=== PATIENT | female | born 1935 | race Caucasian/White ===

== ENCOUNTER 2021-01-13 15:49 | Emergency (ER) | payer OTHER ==
[~2021-01-13] VITALS: Ht 157.5 cm; Wt 61.2 kg
--- NOTE | ~2021-01-13 | EMS ---
[address] [address] EMS Patient Care Report Name: MELANIE HENDERSON Room #: DEP ALFIE Eid#: [id number] Admission: 01/13/21 Attend Phys: Discharge: 01/13/21 Date of : 39 Report #: [id number] THIS REPORT FOR: //name// Report Transmitted: 01/14/2021 13:32 EMS Care Summary [place], [place]/[facility] Incident [id number] @ 01/13/2021 15:23 Incident Location [address] [place] [address] Patient MELANIE HENDERSON Female, 85 Years 1935 Patient Address [address] [place] [address] Patient History End Stage Renal Disease (ESRD),Dialysis, Patient Allergies No known allergies, Patient Medications None Reported, Chief Complaint Syncope Disposition Transported No Lights/[place] Dispatch Reason Unconscious/Fainting Transported To [facility] Narrative Arrived on scene with P36 to find our patient seated in her dialysis chair. Dialysis staff reported that the patient had been receiving her regular dialysis treatment and had gone unconscious for a short period of time. Staff [address] [address] EMS Patient Care Report Name: MELANIE HENDERSON Room #: DEP [place]#: [id number] Admission: 01/13/21 Attend Phys: Discharge: 01/13/21 Date of : 39 Report #: [id number] also reported that they had done two blood glucose tests on the patient, the first with a reading of 40 followed a short time later with a glucose of 103 with no intervention having been performed. Patient had completed 2/3 of her dialysis treatment. Due to patient's altered mental status a detailed history was not attainable from the patient. Patient was responsive to painful stimuli upon our arrival, after her response to painful stimuli patient was responsive to verbal stimuli but was not fully conscious. Patient's vital signs, 3 lead EKG, and glucose obtained. Patient transported and transferred to receiving facility without change in patient condition. Initial Vitals @15:41P: 79,CO: 0,SpO2: 99, @15:40P: 78,R: 16,BP: 170/58,GCS: 9,Glucose: 107,SpO2: 100,Revised Trauma: 11, @15:42P: 80,R: 16,BP: 169/58,GCS: 11,SpO2: 97,Revised Trauma: 11, Assessments @15:36MENTAL:Unresponsive,SKIN:Diaphoresis,HEENT:Head/Face: No Abnormalities,Eyes: No Abnormalities,Neck/Airway: No Abnormalities,LUNG SOUNDS:ABDOMEN:PELVIS//GI:Tenderness,Unstable,EXTREMITIES:Left Arm: No Abnormalities,Right Arm: No Abnormalities,Left Leg: No Abnormalities,Right Leg: No Abnormalities,PULSE:NEURO:No Abnormalities, Impression Syncope / Fainting Procedures @15:36ALS AssessmentResponse: UnchangedSucceeded@15:403-Lead ECGResponse: UnchangedSucceeded Timeline 15:21,Call Received 15:21,Dispatch Notified 15:23,Dispatched 15:23,En Route 15:30,On Scene 15:36,At Patient 15:36,ALS Assessment,Response: UnchangedSucceeded, 15:40,3-Lead ECG,Response: UnchangedSucceeded, 15:40,BP: 170/58 M,PULSE: 78,RR: 16 R,SPO2: 100 Ox,ETCO2: ,B,PAIN: ,GCS: 9, 15:41,BP: / M,PULSE: 79,RR: R,SPO2: 99 Ox,ETCO2: ,BG: ,PAIN: ,GCS: , 15:42,BP: 169/58 M,PULSE: 80,RR: 16 R,SPO2: 97 Ox,ETCO2: ,BG: ,PAIN: ,GCS: 11, 15:44,Depart Scene 15:46,At Destination 16:04,Call Closed [facility] [address] [place] [address] EMS Patient Care Report Name: MELANIE HENDERSON Room #: DEP [facility]#: [id number] Admission: 01/13/21 Attend Phys: Discharge: 01/13/21 Date of : 39 Report #: [id number] Disclaimer v1.1 Copyright 2020 [employer] This EMS Care Summary contains data elements from the applicable legal record (which may be displayed differently). It is designed to provide pertinent information for the following purposes: continuity of care, clinical quality, and state data reporting. The complete legal record is available to ED staff and administrators of the receiving hospital in [facility]'s Patient Tracker. All data is provided "as is."
[2021-01-13 16:08] LABS: HEMOGLOBIN 9.9 gm/dL (12.0-15.0); MCH 29.9 pg (26.0-34.0); MCHC 32.9 g/dL (28.0-37.0); MCV 90.9 fL (80.0-100.0); PLATELET COUNT 314 thou/uL (150-400); RDW 16.3 % (10.5-14.5); WBC 14.4 thou/uL (4.0-11.0)
[2021-01-13 16:20] LABS: URINE BILIRUBIN NEGATIVE (Negative); URINE BLOOD TRACE (Negative); URINE CLARITY SL CLOUDY; URINE COLOR YELLOW; URINE GLUCOSE-RANDOM* NEGATIVE (Negative); URINE KETONES NEGATIVE (Negative); URINE LEUKOCYTES-REFLEX 2+ (Negative); URINE NITRITE-REFLEX NEGATIVE (Negative); URINE PROTEIN (DIPSTICK) 2+ (Negative); URINE UROBILINOGEN 0.2 E.U./dl (0.2-1.0)
[2021-01-13 16:23] LABS: CALCIUM 8.6 mg/dL (8.5-10.1); CREATININE 2.2 mg/dL (0.6-1.0)
[2021-01-13 16:25] LABS: POTASSIUM 4.2 mmol/L (3.5-5.1)
[2021-01-13 16:28] LABS: ABSOLUTE NEUTROPHILS 10.7 thou/uL (1.4-8.2); PLATELET ESTIMATE NORMAL
[2021-01-13 16:33] LABS: TOTAL BILIRUBIN 0.4 mg/dL (0.2-1.0); TOTAL PROTEIN 7.1 g/dL (6.4-8.2)
[2021-01-13 16:34] LABS: SQUAMOUS 4-10 Moderate /LPF (0-3)
[2021-01-13 16:34] LABS: ALBUMIN 2.5 g/dL (3.4-5.0)
[2021-01-13 16:35] LABS: URINE RBC 3-10 Few /HPF (NONE SEEN); URINE WBC-REFLEX 6-15 Few /HPF (0-5)
[2021-01-13 16:36] LABS: RENAL EPITHELIAL CELLS 4-10 Moderate /LPF (None Seen)
--- NOTE | 2021-01-13 16:42 | EKG ---
[address] [place] [facility] [address] ELECTROCARDIOGRAM REPORT Name: MELANIE HENDERSON [facility] [id number] Admission: 01/13/21 Attend Phys: Discharge: Date of : 39 Report #: [id number] [facility] ED Test Date: 2021-01-13 Test Time: 15:58:29 Pat Name: MELANIE HENDERSON Department: Room: Gender: F Insurance Claims Representative: colton : 1935 Requested By: Sergio Dorantes Order Number: [id number] MD: Reji Chase Measurements Intervals [place] Rate: 77 P: 76 CA: 125 QRS: 89 QRSD: 137 T: 21 QT: 412 QTc: 467 Interpretive Statements Sinus rhythm Right bundle branch block No previous ECG available for comparison Electronically Signed On 01-13-2021 16:42:22 CDT by Reji Chase [email or web address] <ELECTRONICALLY SIGNED> By: Reji Chase MD, [facility] 01/13/21 1642 1558 1558 Reji Chase MD, FACC /EPI
[2021-01-13] MEDS ORDERED: CEPHALEXIN500 MG PO (17:51)
[2021-01-13 18:36] VITALS: BP 179/44
== END 2021-01-13 18:37 ==
LOC: ER 15:49
PROVIDERS: Emergency Medicine
DX: N39.0 Urinary tract infection, site not specified (principal); R53.1 Weakness; Z91.09 Other allergy status, other than to drugs and biological substances; Z88.6 Allergy status to analgesic agent